=== PATIENT | male | born 1995 | race Caucasian/White ===

== ENCOUNTER 2017-11-25 17:00 | Emergency (ER) | payer OTHER, SELFPAY ==
[2017-11-25 17:01] VITALS: BP 131/72; PULSE 108; RESP 19; TEMP 37.3; O2SAT 100; BMI 23.7
--- NOTE | 2017-11-25 17:44 | ED.DCSUM_ITS ---
- ER Visit Summary Date of Service: 11/25/17 Chief Complaint: Upper respiratory congestion History of Present Illness: The patient is a 22 M who presents with upper respiratory infection that began yesterday. Patient states he has been having subjective fevers and sweats at home. Patient states he has frontal headache. Patient admits to a cough but denies any sputum production. Patient describes his pain as aching. Patient states he has a deviated septum and chronically has rhinorrhea. Patient admits to some nausea and vomiting. Patient denies any chest pain or shortness of breath. Physical Examination: Vital signs are stable. Patient is afebrile. Patient is in no acute distress. Nasal mucosa is congested. There is tenderness over the frontal sinuses bilaterally. Tympanic membranes are clear bilaterally. Oral mucosa is pink and moist. Oropharynx is clear. Neck is supple. Trachea is midline. No JVD or lymphadenopathy noted. Heart was regular rate and rhythm. Lungs are clear and equal bilaterally. There is good respiratory effort noted. Cranial nerves II through XII are intact. There are no focal motor or sensory deficits noted. The remaining physical exam is within normal limits. Emergency Department Course and Treatment: Patient was given prescription for Flonase and Sudafed. Patient was instructed to follow-up with his primary care physician in 7-10 days. Patient understood and was agreeable with the plan. All questions were answered. Disposition: Discharged home Impression: Sinusitis This note was generated with [employer] dictation software. It may contain incorrect words, spelling, and punctuation that were not noted in review of the chart prior to signing ED Disposition - Plan for ED Patient: Disposition: Home or Assisted Living Chief Complaint: Cold Sx Diagnosis: Sinusitis Instructions: ED Sinusitis No Abx Prescriptions: Fluticasone 0.05% [Flonase Nasal [place]] 2 spray NASAL DAILY #1 nasal.sry Pseudoephedrine HCl [Sudafed 24-Hour] 240 mg PO DAILY PRN PRN #[id number] PRN Reason: Congestion Referrals: NOT,DEFINED [NON-STAFF] -
[2017-11-25 17:56] VITALS: PULSE 104; RESP 16; O2SAT 99
== END 2017-11-25 17:57 | disposition home or self-care (01) ==
PROVIDERS: Emergency Provider Emergency Medicine
DX: J32.1 Chronic frontal sinusitis (principal)
CPT/HCPCS: 99282